=== PATIENT | female | born 1990 | race Caucasian/White ===

== ENCOUNTER 2023-10-10 20:42 | Inpatient (IN) ==
[2023-10-10] MEDS ORDERED: LIDOCAINE 1% LOCAL 20 ML VIAL INFIL PRN (21:20)
[2023-10-10] MEDS: LACTATED RINGER'S 1,000 ML IV PRN (21:46)
--- NOTE | 2023-10-10 21:48 | History & Physical Report ---
Date of Service October 10, 2023 Assessment & Plan (1) Active labor at term: Plan: 33-year-old G1, P0 at 40 weeks and 4 days of gestation presenting today with regular contractions and cervical change, in active labor, Vital signs stable afebrile, heart rate reassuring, GBS positive, Plan to admit, monitor, labs, IV penicillin for GBS, Patient desires unmedicated labor, declines epidural and AROM. We discussed pain management during labor and the benefits of AROM and active labor. All questions were answered. (2) Post-term , 40-42 weeks of gestation: (3) GBS (group B Streptococcus carrier), +RV culture, currently : Admission and Anticipated Discharge Date Admission Date: October 10, 2023 History of Present Illness Primary Care Provider: NO PCP Patient is a 33-year-old G1, P0 at 40 weeks and 4 days of gestation who has been feeling contractions since 11 PM last night. They were irregular every 8 to 10 minutes and they became more regular after 6 PM, every 4 to 6 minutes. She denies leakage of fluid or vaginal bleeding. She reports good movements. She was in the office this morning and her cervix was 2 cm dilated she was sent from. Her has been uncomplicated except GBS positive. Allergies Allergy/AdvReac Type Severity Reaction Status Date / Time No Known Allergies Allergy Unknown Unverified 08/12/13 02:44 Home Medications Medication Instructions Recorded Confirmed Type None (Patient States No Home Meds) ##0 08/12/13 History vits,calcium 91-iron 28 pkg PO 10/10/23 History mg-folic 975 mcg-dha 200 mg oral pack ( + DHA) Patient History Surgical History S/P appendectomy Family History Father Diabetes Mother Glaucoma Mother Glaucoma Grandfather (Maternal) Hypertension Stroke Social History Smoking Status: Former smoker Hx Alcohol Use: No Hx Substance Use: No Preferred Language: Spanish Communication Ability: Effective Livestock Breeder Required: No Beliefs That Will Affect Care: None marital status: marital status details: Prashant Robb) Current Living Situation: Spouse Current Living Situation Comment: lives with , David current occupational status: employed current occupation: [employer] Other Information That Helps Us Care for You: No Feels Safe at Home: Yes Safety Concerns: Feels Safe At This Time Diet: regular Assistive Devices: Contacts and Glasses ADMINISTRATIVE ASSISTANT FRONT DESK History No history of STDs, no history of chlamydia, gonorrhea, herpes Review of Systems as per Subjective / HPI Physical Exam Constitutional: WD/WN, vitals as above well developed, well nourished and + acute distress (She seems painful with contractions) Gastrointestinal (Abdomen): normal bowel sounds, soft, nontender, no hepatosp lenomegaly (Gravid) Genitourinary: normal external appearance OB Exam Abdomen: + vertex Manual OB Exam: + cervical dilation 5 cm (5 to 6 cm), + cervical effacement 70% and + station -2 (Bulging bag) OB Exam Monitor Tracing: + external uterine monitor used and + category I Results & Data Vital Signs (Past 12 Hours) Vital Signs Temp Pulse Resp BP 10/10/23 21:26 62 125/75 10/10/23 21:10 20 10/10/23 21:10 36.4 C L 20 10/10/23 21:06 36.4 C L 20
[2023-10-10 21:58] LABS: Hematocrit (blood only) 38.6 % (37.0-47.0); Hemoglobin 13.5 g/dl (12.0-16.0); Mean Corpuscular Hemoglobin 31.5 pg (25.0-34.0); Platelet Count 231 K/uL (130-400); RDW Coefficient of Variation 13.2 % (11.5-14.5); RDW Standard Deviation 43.6 fL (36.4-46.3); Red Blood Count 4.29 M/uL (4.20-5.40); White Blood Count 12.95 K/ul (4.8-10.8)
[2023-10-10] MEDS: PENICILLIN GK 6 MU in DEXTROSE 5% 250 ML IV STA (22:19)
[2023-10-10] MEDS: ONDANSETRON INJ 2 MG/ML 2 ML VIAL IV PRN (23:10)
[2023-10-11] MEDS ORDERED: CALCIUM CARBONATE 500 MG CHEWABLE TAB PO PRN (00:12)
[2023-10-11] MEDS ORDERED: NALBUPHINE HCL 5 MG in SYRINGE 0 ML IV PRN (00:32)
[2023-10-11] MEDS ORDERED: LIDOCAINE 2% MPF LOCAL 5 ML VIAL EPI PRN (00:32)
[2023-10-11] MEDS ORDERED: diphenhydrAMINE 50 MG/ML VIAL IV PRN (00:32)
[2023-10-11] MEDS ORDERED: fentANYL 2 MCG/ML BUPIVacaine 0.125%-NSS 100ML BAG EPI PRN (00:32)
[2023-10-11] MEDS ORDERED: SODIUM CHLORIDE 0.9% PF INJ 10 ML VIAL EPI PRN (00:32)
[2023-10-11] MEDS ORDERED: BUPIVACAINE 0.25% PF 30 ML VIAL EPI PRN (00:32)
[2023-10-11] MEDS ORDERED: ePHEDrine sulfate 50 MG/ML AMP IV PRN (00:32)
[2023-10-11] MEDS ORDERED: ROPIVACAINE 0.5% PF 5 MG/ML 20 ML VIAL EPI PRN (00:32)
[2023-10-11] MEDS ORDERED: fentaNYL citrate PF 100 MCG/2 ML VIAL EPI PRN (00:32)
[2023-10-11] MEDS ORDERED: NALOXONE HCL 1 MG in SODIUM CHLORIDE 0.9% 1,000 ML IV PRN (00:32)
[2023-10-11] MEDS ORDERED: NALOXONE HCL 0.4 MG/1 ML VIAL/CARP IV PRN (00:32)
--- NOTE | 2023-10-11 00:32 | Anesthesiology Consultation ---
Date of Service October 11, 2023 Assessment & Plan Chart Review Chart Review: Patient NOT seen in Pre Admission Testing and Acceptable Risk for Labor Epidural Consults Requested none ASA ASA2 Proposed Anesthesia Anesthesia Type: Labor Epidural Risk / Benefits Reviewed With: PT / POA / Parent / Guardian, Accepts Plan and Informed Consent Obtained History Height/Weight Height: 5 ft 6 in Weight: 76.657 kg Allergies Allergy/AdvReac Type Severity Reaction Status Date / Time No Known Allergies Allergy Unknown Unverified 08/12/13 02:44 Medications Home Medications Medication Instructions Recorded Confirmed Last Taken None (Patient States No Home Meds) ##0 08/12/13 Unknown vits,calcium 91-iron 28 pkg PO 10/10/23 10/10/23 mg-folic 975 mcg-dha 200 mg oral pack ( + DHA) Active Medications Generic Name Dose Route Start Last Admin Trade Name Freq PRN Reason Stop Dose Admin Lactated Ringer's 1,000 mls @ 150 mls/hr 10/10/23 21:20 10/10/23 21:46 Lr IV 10/12/23 21:19 150 mls/hr .[id number] PRN Administration L&D Protocol Protocol Ondansetron HCl 4 mg 10/10/23 22:45 10/11/23 00:56 Ondansetron Inj 2 Mg/Ml 2 Ml Vial IV 11/09/23 22:44 4 mg Q4H PRN Administration Nausea NPO Date Last Intake of Fluids: 10/11/23 Time Last Intake of Fluids: 00:00 Date Last Intake of Solids: 10/10/23 Time Last Intake of Solids: 19:00 Exercise / Class Metabolic Activity II 4-5 Yardwork/Stairs/Walk up hill Past Family History Family History Father Diabetes Mother Glaucoma Mother Glaucoma Grandfather (Maternal) Hypertension Stroke Past Surgical History Surgical History S/P appendectomy Past Anesthesia History No Hx of Anesthesia Complications and No Family Hx of Anesthesia Complications History of PONV No Hx of Motion Sickness and History of PONV Social History Smoking Status: Former smoker Hx Alcohol Use: No Hx Substance Use: No substance use type: does not use Review of Systems ROS Unobtainable: All systems reviewed & are unremarkable except as noted in HPI & below Physical Exam Vital Signs Last Vital Signs Temp 36.4 C L 10/10/23 21:10 Pulse 61 10/10/23 23:36 Resp 18 10/10/23 23:30 BP 130/79 10/10/23 23:36 ENMT Mouth: no TMJ abnormality Thyromental Distance: > or= 3.5 Finger Breadths Mallampati Class: II Neck normal visual inspection and trachea midline; neck extension not limited Respiratory normal respiratory effort Auscultation: lungs clear to auscultation bilaterally Cardiovascular Rate/Rhythm: regular rate and regular rhythm Heart Sounds: no murmur Musculoskeletal Spine: normal cervical ROM Extremities: full ROM of extremities Neurologic moves all extremities Psychiatric Orientation: alert and oriented x 3 Testing Laboratory Results 10/10/23 21:37
--- NOTE | 2023-10-11 00:36 | Obstetrical Progress Note ---
Date of Service October 11, 2023 Assessment & Plan Admission and Anticipated Discharge Date Admission Date: October 10, 2023 Subjective Patient is reevaluated. Contractions are getting more painful. She decided to get epidural. Declined VE FHR categ I, mild early decels with some of the contractions. Continue to monitor closely. Results & Data Vital Signs (Past 12 Hours) Vital Signs Temp Pulse Resp BP Pulse Ox 10/11/23 00:32 64 130/82 92 10/11/23 00:31 57 L 96 10/10/23 23:36 61 130/79 10/10/23 23:30 18 10/10/23 23:30 18 10/10/23 23:00 20 10/10/23 23:00 20 10/10/23 22:30 20 10/10/23 22:30 20 10/10/23 22:00 18 10/10/23 22:00 18 10/10/23 21:30 18 10/10/23 21:30 18 10/10/23 21:26 62 125/75 10/10/23 21:10 20 10/10/23 21:10 36.4 C L 20 10/10/23 21:06 36.4 C L 20
[2023-10-11] MEDS: BUPIVACAINE 0.25% PF 30 ML VIAL ONE (00:52)
[2023-10-11] MEDS: LIDOCAINE 2%/EPINEPHRINE 1:200,000 20 ML PF ONE (00:52)
[2023-10-11] MEDS: fentANYL 2 MCG/ML BUPIVacaine 0.125%-NSS 100ML BAG ONE (00:53)
[2023-10-11] MEDS: fentaNYL citrate PF 100 MCG/2 ML VIAL ONE (00:53)
--- NOTE | 2023-10-11 01:43 | Obstetrical Progress Note ---
Date of Service October 11, 2023 Assessment & Plan Admission and Anticipated Discharge Date Admission Date: October 10, 2023 Subjective Patient is comfortable now Received epidural for pain FHR had decels, some early with ctxs some variable with quick spontaneous recovery VE; 9/ 90%/ -, Large bulging bag, she agreed with AROM, clear fluid obtained FHR had accel and increased variability after VE Continue to monitor closely. Results & Data Vital Signs (Past 12 Hours) Vital Signs Temp Pulse Resp BP Pulse Ox 10/11/23 01:36 77 94 10/11/23 01:31 68 122/66 94 10/11/23 01:26 72 104/51 L 92 10/11/23 01:21 70 94 10/11/23 01:20 78 98/53 L 10/11/23 01:16 73 92 10/11/23 01:14 68 100/54 L 10/11/23 01:12 68 99/52 L 10/11/23 01:11 93 10/11/23 01:11 69 10/11/23 01:11 72 102/57 L 10/11/23 01:10 65 99/54 L 10/11/23 01:08 66 90/53 L 10/11/23 01:06 62 96/54 L 92 10/11/23 01:04 65 96/55 L 10/11/23 01:02 65 98/55 L 10/11/23 01:01 93 10/11/23 01:01 66 10/11/23 01:01 69 110/57 L 10/11/23 00:58 66 122/74 10/11/23 00:57 73 120/70 10/11/23 00:56 71 92 10/11/23 00:55 64 120/84 10/11/23 00:53 62 115/87 10/11/23 00:51 68 133/93 95 10/11/23 00:46 85 91 10/11/23 00:41 78 94 10/11/23 00:36 62 93 10/11/23 00:32 64 130/82 92 10/11/23 00:31 57 L 96 10/10/23 23:36 61 130/79 10/10/23 23:30 18 10/10/23 23:30 18 10/10/23 23:00 20 10/10/23 23:00 20 10/10/23 22:30 20 10/10/23 22:30 20 10/10/23 22:00 18 10/10/23 22:00 18 10/10/23 21:30 18 10/10/23 21:30 18 10/10/23 21:26 62 125/75 10/10/23 21:10 20 10/10/23 21:10 36.4 C L 20 10/10/23 21:06 36.4 C L 20
[2023-10-11] MEDS: PENICILLIN GK 3 MU in DEXTROSE 5% 100 ML IV PRN (02:15)
[2023-10-11] MEDS: SODIUM CHLORIDE 0.9% PF INJ 10 ML VIAL ONE (02:32)
[2023-10-11] MEDS: ePHEDrine sulfate 50 MG/ML AMP ONE (02:32)
[2023-10-11] MEDS: BUPIVACAINE 0.25% PF 30 ML VIAL EPI STA (02:32)
[2023-10-11] MEDS: LIDOCAINE 2%/EPINEPHRINE 1:200,000 20 ML PF EPI STA (02:33)
[2023-10-11] MEDS: ONDANSETRON INJ 2 MG/ML 2 ML VIAL IV STA (02:33)
[2023-10-11] MEDS: SODIUM CHLORIDE 0.9% PF INJ 10 ML VIAL EPI STA (02:33)
[2023-10-11] MEDS: fentaNYL citrate PF 100 MCG/2 ML VIAL EPI STA (02:33)
[2023-10-11] MEDS: OXYTOCIN 30 UNITS/NSS 30 UNITS/500 ML BAG IV PRN (06:37)
[2023-10-11] MEDS ORDERED: ACETAMINOPHEN 325 MG TAB PO PRN (07:04)
[2023-10-11] MEDS ORDERED: HYDROCORTISONE ACETATE 25 MG SUPP PR PRN (07:04)
[2023-10-11] MEDS ORDERED: BENZOCAINE 20% SPRY 85 APPLN/85 GM CAN EXT PRN (07:04)
[2023-10-11] MEDS ORDERED: bisacodyL 10 MG SUPP PR PRN (07:04)
[2023-10-11] MEDS ORDERED: OXYTOCIN 30 UNITS/NSS 30 UNITS/500 ML BAG IV PRN (07:04)
--- NOTE | 2023-10-11 07:11 | Delivery Summary ---
Vaginal Delivery Summary Date of Service October 11, 2023 Vaginal Delivery Summary Patient was found to be fully dilated and desired to push. She pushed for about 2 hours and the head was over a tight perineum, offered her small episiotomy but declined. She then push with contractions and delivered the head and then shoulders spontaneously without traction at 06:23 am. The baby was handed off to the mother. The couple requested delayed cord clamping earlier but unable to due to spontaneous cry. The cord was clampedx2 and cut. The was taken by nursery team. The vagina and perineum were checked and found to have 2nd degree perineal laceration with extension to right lower vagina. Rectal exam was done and noted good sphincter tone. The gloves were changes. The vaginal mucosa was repaired with 2/0 vicryl and skin on subcuticular fashion. The placenta was delivered spontaneously as intact and complete. The uterus was explored and found to be empty. EBL was 200 ml. The fundus was firm The baby was a viable male , see nursery records. The mother and the baby tolerated the procedure well. No complications happened and I was present during whole procedure.
[2023-10-11] MEDS: MEASLES, MUMPS & RUBELLA VIRUS VACCINE (MMR) VIAL SQ ONE (07:14)
--- NOTE | 2023-10-11 07:51 | Anesthesia Procedure Note ---
Date of Service October 11, 2023 Anesthesia Post Epidural Note Vital Signs Vital Signs: Temp Pulse Resp BP Pulse Ox 98.1 F 92 H 16 119/67 92 10/11/23 05:36 10/11/23 07:49 10/11/23 07:35 10/11/23 07:49 10/11/23 06:56 Pain Intensity Abdomen: Pain Intensity: 7 Notes Mental Status: alert / awake / arousable and participated in evaluation Nausea / Vomiting: adequately controlled Pain: adequately controlled Airway Patency, RR, SpO2: stable & adequate BP & HR: stable & adequate Hydration State: stable & adequate Neuraxial Anesthesia: was administered and sensory block is resolving Anesthetic Complications: no major complications apparent and Pt Satisfied with anesthetic care Epidural: Removed without complications and With tip intact
[2023-10-11] MEDS: MINERAL OIL 30 ML UDC ONE (10:10)
[2023-10-11] MEDS: IBUPROFEN 600 MG TAB PO PRN (11:44)
[2023-10-11] MEDS: FERROUS SULFATE 325 MG TAB PO SCH (11:46)
[2023-10-11] MEDS: PRENATAL VITAMIN 1 TAB PO SCH (11:46)
[2023-10-11] MEDS: DOCUSATE SODIUM 100 MG CAP PO SCH (11:46)
[2023-10-11] MEDS: DIPHTHER/TETAN/PERTUS Vaccine (Tdap, Adol/Adult) 0.5mL IM ONE (11:47)
--- OUTSIDE RECORDS SUMMARY | 2023-10-11 11:51 | External Medical Summary | Summary of Care ---
Author Name Unknown Organization [facility] Address [address] [facility] [place] [address] Phone [phone] Care Team Providers Care Nephrology Social Worker Name Role Phone Dash Vanessa MD Primary Care Provider [phone] Reason for Visit * Reason Comments Return Visit Encounter Details Date Type Department Care Team (Late st Contact Info) Description 09/17/2023 8:30 AM EST Office Visit Gynecology/Obstetri [facility] [address] [place] [address] BackerBhumi CRNP [address] [place] [address] Supervision of normal first , antepartum*; Primigravida of advanced maternal age in third trimester; Carrier of group B Streptococcus Allergies No known active allergiesdocumented as of this encounter (statuses as of 09/17/2023) Medications Medication Sig Dispensed Refills Start Date End Date Status Pre-Rebecca Formula Oral Tablet Take 1 Tablet by mouth in the morning. 0 Active documented as of this encounter (statuses as of 09/17/2023) Active Problems Problem Noted Date Diagnosed Date Carrier of group B Streptococcus 09/10/2023 Uterine size date discrepancy 08/12/20 23 AMA (advanced maternal age) primigravida 35+ Supervision of normal first , antepartu m 03/24/2023 Tonsillitis 07/02/2022 Snoring 07/02/2022 Estimated Date of Delivery Comme nts Yes 10/03/2023 Based on last me nstrual period of 12/27/2022 (Exact Date) documented as of this encounter (statuses as of 09/17/2023) Immunizations Name Administration Dates Next Due DT - Diptheria/Tetanus (PEDS) 03/22/2003, 993 DTaP Dipth/Tet/Acell Pertussis (Infanrix), Peds 10/28/1989,07/01/1989,1988,08/01,1988 HIB PRP-OMP, 3 dose (Pedvax) 10/28/1989 Hepatitis B, 0-19 yrs 10/26/1999,05/23/1999,03/26 IPV - Polio Virus Vaccine (Inact) 1992,12/04/1992,1988,08/01,1988 MMR - Measles/Mumps/Rubella Vaccine 04/18/1999,1 1988 Meningococcal Conjugate Vacc ine (Menactra/Menveo) 03/16/2007,03/16/2007 PPD 05/04/2015,07/15/2011,01/18/2004 TDAP (age 11 and older)(Adacel) 07/15/2011 documented as of this encounter Social History Tobacco Use Types Packs/Day Years Used Date Smoking Tobacco: Never Smokeless Tobacco: Never Alcohol Use Standard Drinks/Week Comments No 0 (1 standard drink = 0.6 oz pur e alcohol) Hunger Vital Sign Answer Date Recorded Within the past 12 months, y ou worried that your food would run out before you got the money to buy more. Never true 02/18/20 23 Within the past 12 months, t he food you bought just didn't last and you didn't have money to get more. Never true 02/17/2023 Logan Depression Scale Answer Date Recorded Logan Depression Scale Total 8 07/14/2023 The thought of harming myself has occurred to me . Never 07/14/2023 Estimated Date of Delivery Comme nts Yes 10/03/2023 Based on last me nstrual period of 12/27/2022 (Exact Date) Sex and Gender Information Value Date Recorded Sex Assigned at Female 02/17/2023 9:23 AM EDT Gender Identity Female 02/17/2023 9:23 AM EDT Sexual Orientation Straight 02/17/2023 9: 23 AM EDT Job Start Date Occupation Industry Not on file Not on file Not on file documented as of this encounter Last Filed Vital Signs Vital Sign Reading Time Taken Comments Blood Pressure 104/66 09/17/2023 8:29 AM EST Pulse - - Temperature - - Respiratory Rate - - Oxygen Saturation - - Inhaled Oxygen Concentration - - Weight 76.6 kg (168 lb 12.8 oz) 09/17/2023 8:29 AM EST Height - - Body Mass Index 28.09 09/09/2023 9:04 AM EST documented in this encounter Progress Notes * Bhumi Rolon CRNP - 09/17/2023 8:35 AM EST 37w5d Baby is moving well. No ctx/bleeding or LOF. Discussed +GBS. Has completed childbirth classes and hospital tour. Reviewed labor signs and FKC. Normal growth scan 3 wks ago. Return in 1 week. FILEMON Zhang * Naima Chavira LPN - 09/17/2023 8:29 AM EST 37w5d Denies vaginal bleeding/rom + movement No new concerns documented in this encounter Plan of Treatment Upcoming Encounters Date Type Department Care Team (Late st Contact Info) Description 09/23/2023 8:45 AM EST Office Visit Gynecology/Obstetrics [facility] [address] [place] [phone] Bhumi Rolon CRNP [address] [place] [phone] 10/02/2023 9:15 AM EST Office Visit Gynecology/Obstetrics [facility] [address] [place] [phone] Backer, FILEMON Sage [address] [place] [address] Health Maintenance Due Date Last Done Comments COVID-19 Vaccine (#1) 1988 Depression Screening 05/04/2016 05/04/2015 DTaP,Tdap,and Td Vaccines (8 - Td or Tdap) 07/15/2021 07/15/2011, 03/22/2003, 12/04/1992, Additional history exists Influenza Vaccine (FLU shot) (#1) 2023 Pap Smear 09/16/2025 09/16/2022 Diabetes Screening 09/27/2025 09/27/2022 Cervical Cancer Screening 09/16/2027 HPV/Co-Test 09/16/2027 09/16/2022 Hepatitis B Completed 10/26/1999, 04/26, 04/18/1999 MENINGOCOCCAL (MENACTRA/MENVEO) Aged Out 03/16/2007, 03/16/2007 No longer eligibl e based on patient's age to complete this topic GARDASIL-HPV IMMUNIZATION SERIES Aged Out No longer eligible based on patient's age to complete this topic Pneumococcal Vaccine: Pediatrics (0 to 5 Years) and At-Risk Patients (6 to 64 Years) Aged Out No longer eligible based on patient's age to complete this topic documented as of this encounter Medical Devices Not on filedocumented as of this encounter Visit Diagnoses Diagnosis Supervision of normal first , antepartum- Primary Primigravida of advanced maternal age in third trimester Carrier of group B Streptococcus Carrier or suspected carrier of Group B streptococcus documented in this encounter Care Teams Nephrology Social Worker Relationship Specialty Start Date End Date Dash Vanessa MD [address] [place] [address] PCP - General Internal Medicine 07/23/22 documented as of this encounter
--- OUTSIDE RECORDS SUMMARY | 2023-10-11 11:51 | External Medical Summary | Summary of Care ---
Author Name Unknown Organization [facility] Address [address] [facility] [place] [address] Phone [phone] Care Team Providers Care Nurse Unit Manager Name Role Phone Dash Vanessa MD Primary Care Provider [phone] Reason for Visit * Reason Comments Return Visit Encounter Details Date Type Department Care Team (Late st Contact Info) Description 09/23/2023 8:45 AM EST Office Visit Gynecology/Obstetri [facility] [address] [place] [address] BackBhumi blanchard CRNP [address] [place] [address] Supervision of normal first , antepartum*; Primigravida of advanced maternal age in third trimester; Carrier of group B Streptococcus Allergies No known active allergiesdocumented as of this encounter (statuses as of 09/23/2023) Medications Medication Sig Dispensed Refills Start Date End Date Status Pre-Rebecca Formula Oral Tablet Take 1 Tablet by mouth in the morning. 0 Active documented as of this encounter (statuses as of 09/23/2023) Active Problems Problem Noted Date Diagnosed Date Carrier of group B Streptococcus 09/10/2023 AMA (advanced maternal age) primigravida 35+ Supervision of normal first , antepartu m 03/24/2023 Tonsillitis 07/02/2022 Snoring 07/02/2022 Estimated Date of Delivery Comme nts Yes 10/03/2023 Based on last me nstrual period of 12/27/2022 (Exact Date) documented as of this encounter (statuses as of 09/23/2023) Resolved Problems Problem Noted Date Diagnosed Date Resolved Date Uterine size date discrepancy 08/12/2023 09/23/2023 documented as of this encounter (statuses as of 09/23/2023) Immunizations Name Administration Dates Next Due DT [...] money to get more. Never true 02/17/2023 Hillman Depression Scale Answer Date Recorded Hillman Depression Scale Total 8 07/14/2023 The thought [...] Sign Reading Time Taken Comments Blood Pressure 114/72 09/23/2023 8:44 AM EST Pulse - - Temperature - - Respiratory Rate - - Oxygen Saturation - - Inhaled Oxygen Concentration - - Weight 76.7 kg (169 lb) 09/23/2023 8:44 AM EST Height 165.1 cm (5' 5") 09/23/2023 8:44 AM EST Body Mass Index 28.12 09/23/2023 8:44 AM EST documented in this encounter Progress Notes * Bhumi Rolon CRNP - 09/23/2023 8:46 AM EST 38w4d Baby moving well, no ctx/leaking/bleeding. Not planning on using contraception PP. 1 week return FILEMON Zhang documented in this encounter Nursing Notes * Emerald Kerns LPN - 09/23/2023 8:47 AM EST 38w4d Denies concerns. documented in this encounter Plan of Treatment Upcoming Encounters Date Type Department Care Team (Late st Contact Info) Description 10/02/2023 9:15 AM EST [facility] [address] [place] [address] Bhumi Rolon CRNP [address] [place] [address] Health Maintenance Due Date Last Done Comments [...] streptococcus documented in this encounter Care Teams Nurse Unit Manager Relationship Specialty Start Date End Date Dash Vanessa MD [address] [place] [address] PCP - General Internal Medicine 07/23/22 documented as of this encounter
--- OUTSIDE RECORDS SUMMARY | 2023-10-11 11:51 | External Medical Summary | Summary of Care ---
Author Name Unknown Organization [facility] Address [address] [facility] [place] [address] Phone [phone] Care Team Providers Care Professor Of Radiology Name Role Phone Dash Vanessa MD Primary Care Provider Reason for Visit * Reason Comments Return Visit Encounter Details Date Type Department Care Team (Late st Contact Info) Description 09/09/2023 9:00 AM EST Office Visit Gynecology/Obstetric s [facility] [address] [place] [address] Karolina Judd CRNP [address] [place] [address] Supervision of normal first , antepartum*; Primigravida of advanced maternal age in third trimester Allergies No known active allergiesdocumented as of this encounter (statuses as of 09/09/2023) Medications Medication Sig Dispensed Refills Start Date End Date Status Pre-Rebecca Formula Oral Tablet Take 1 Tablet by mouth in the morning. 0 Active documented as of this encounter (statuses as of 09/09/2023) Active Problems Problem Noted Date Diagnosed Date Uterine size date discrepancy 08/12/20 23 AMA (advanced maternal age) primigravida 35+ Supervision of normal first , antepartu m 03/24/2023 Tonsillitis 07/02/2022 Snoring 07/02/2022 Estimated Date of Delivery Comme nts Yes 10/03/2023 Based on last me nstrual period of 12/27/2022 (Exact Date) documented as of this encounter (statuses as of 09/09/2023) Immunizations Name Administration Dates Next Due DT [...] money to get more. Never true 02/17/2023 Lisbon Depression Scale Answer Date Recorded Lisbon Depression Scale Total 8 07/14/2023 The thought [...] Sign Reading Time Taken Comments Blood Pressure 118/68 09/09/2023 9:04 AM EST Pulse - - Temperature - - Respiratory Rate - - Oxygen Saturation - - Inhaled Oxygen Concentration - - Weight 76.7 kg (169 lb) 09/09/2023 9:04 AM EST Height 165.1 cm (5' 5") 09/09/2023 9:04 AM EST Body Mass Index 28.12 09/09/2023 9:04 AM EST documented in this encounter Progress Notes * Karolina Judd CRNP - 09/09/2023 9:20 AM EST 36w4d No concerns. Feeling well. Baby is moving well. Denies contractions,bleeding, or LOF. GBS today. Size<dates, but growth u/s 2 weeks ago showing appropriate growth. FILEMON [place] * Yulissa Matamoros LPN - 09/09/2023 9:04 AM EST 36w4d Needs gbs today documented in this encounter Plan of Treatment Upcoming Encounters Date Type Department Care Team (Late st Contact Info) Description 09/17/2023 8:30 AM EST Office Visit Gynecology/Obstetrics [facility] [address] [place] [address] Bhumi Rolon CRNP [address] [place] [phone] 09/23/2023 8:45 AM EST Office Visit Gynecology/Obstetrics [facility] [address] [place] [address] Bhumi Rolon CRNP [address] [place] [address] 10/02/2023 9:15 AM EST Office Visit Gynecology/Obstetrics [facility] Bautista [address] [place] [address] Backer, FILEMON Sage [address] [place] [address] Pending Results Name Type Priority Associated Diagnoses Date /Time GROUP B STREP CULTURE/PCR Lab Routine Supervision of normal first , antepartum 09/09/2023 9:31 AM EST Scheduled Orders Name Type Priority Associated Diagnoses Orde r Schedule GROUP B STREP CULTURE/PCR Lab Routine Supervision of normal first , antepartum Expected: 09/09/2023, Expires: 09/09/2024 Health Maintenance Due Date Last Done Comments [...] of advanced maternal age in third trimester documented in this encounter Care Teams Professor Of Radiology Relationship Specialty Start Date End Date Dash Vanessa MD [address] [place] [address] PCP - General Internal Medicine 07/23/22 documented as of this encounter
--- OUTSIDE RECORDS SUMMARY | 2023-10-11 11:51 | External Medical Summary | Summary of Care ---
Author Name Unknown Organization [facility] Address [address] [facility] [place] [address] Phone [phone] Care Team Providers Care Buoy Tender Name Role Phone Dash Vanessa MD Primary Care Provider Reason for Visit * Reason Comments Return Visit Encounter Details Date Type Department Care Team (Late st Contact Info) Description 08/27/2023 8:45 AM EST Office Visit Gynecology/Obstetric s [facility] Bautista [address] [place] [address] BackerBhumi CRNP [address] [place] [address] Supervision of normal first , antepartum*; Primigravida of advanced maternal age in third trimester Allergies No known active allergiesdocumented as of this encounter (statuses as of 08/27/2023) Medications Medication Sig Dispensed Refills Start Date End Date Status Pre- Formula Oral Tablet Take 1 Tablet by mouth in the morning. 0 Active documented as of this encounter (statuses as of 08/27/2023) Active Problems Problem Noted Date Diagnosed Date Uterine size date discrepancy 08/12/20 23 AMA (advanced maternal age) primigravida 35+ Supervision of normal first , antepartu m 03/24/2023 Tonsillitis 07/02/2022 Snoring 07/02/2022 Estimated Date of Delivery Comme nts Yes 10/03/2023 Based on last me nstrual period of 12/27/2022 (Exact Date) documented as of this encounter (statuses as of 08/27/2023) Immunizations Name Administration Dates Next Due DT [...] money to get more. Never true 02/17/2023 [place] Depression Scale Answer Date Recorded [place] Depression Scale Total 8 07/14/2023 The thought [...] Sign Reading Time Taken Comments Blood Pressure 122/70 08/27/2023 8:48 AM EST Pulse - - Temperature - - Respiratory Rate - - Oxygen Saturation - - Inhaled Oxygen Concentration - - Weight 74.7 kg (164 lb 9.6 oz) 08/27/2023 8:48 A M EST Height - - Body Mass Index 27.39 08/12/2023 8:41 AM EST documented in this encounter Progress Notes * Naima Chavira LPN - 08/27/2023 8:48 AM EST 34w5d Denies vaginal bleeding/rom + movement US yesterday for growth Labor instructions given * Bhumi Rolon CRNP - 08/27/2023 8:46 AM EST 34w5d Baby is moving well. No regular ctx, leaking/bleeding. Growth u/s yesterday: EFW 41st %ile, normal SANDRA, vertex. Given labor instructions. Discussed OTC remedies for congestion. Return in 2 weeks. Discussed upcoming GBS testing. FILEMON Zhang documented in this encounter Plan of Treatment Upcoming Encounters Date Type Department Care Team (Late st Contact Info) Description 09/09/2023 9:00 AM EST Office Visit Gynecology/Obstetrics Dilcia Bautista [address] [place] [address] Karolina Judd CRNP [address] [place] [address] 09/17/2023 8:30 AM EST Office Visit Gynecology/Obstetrics Dilcia Bautista [address] [place] [address] BackBhumi blanchard CRNP [address] [place] [address] 09/23/2023 8:45 AM EST Office Visit Gynecology/Obstetrics [facility] [address] [place], [place] [address] BackerBhumi CRNP [address] [place] [address] 10/02/2023 9:15 AM EST Office Visit Gynecology/Obstetrics [facility] [address] [place] [address] BackerBhumi CRNP [address] [place] [address] Health Maintenance Due Date Last Done Comments [...] trimester documented in this encounter Care Teams Buoy Tender Relationship Specialty Start Date End Date Dash Vanessa MD [address] [place] [address] PCP - General Internal Medicine 07/23/22 documented as of this encounter
--- OUTSIDE RECORDS SUMMARY | 2023-10-11 11:51 | External Medical Summary | Summary of Care ---
Author Name Unknown Organization [facility] Address [address] [facility] [place] [address] Phone [phone] Care Team Providers Care Tar Roofer Name Role Phone Dash Vanessa MD Primary Care Provider [phone] Reason for Visit * Reason Comments Return Visit Encounter Details Date Type Department Care Team (Late st Contact Info) Description 09/09/2023 9:00 AM EST Office Visit Gynecology/Obstetric s [facility] Bautista [address] [place] [address] Karolina Judd CRNP [address] [place] [address] Supervision of normal first , antepartum*; Primigravida [...] money to get more. Never true 02/17/2023 [place] Depression Scale Answer Date Recorded [place] Depression Scale Total 8 07/14/2023 The thought [...] Gynecology/Obstetrics Dilcia Bautista [address] [place] [address] Bhumi Rolon CRNP [address] [place] [address] 09/23/2023 8:45 AM EST Office Visit Gynecology/Obstetrics Dilcia Bautista [address] [place] [address] Bhumi Rolon CRNP [address] [place] [address] 10/02/2023 9:15 AM EST Office Visit Gynecology/Obstetrics Dilcia Bautista [address] [place] [address] Backer, FILEMON Sage [address] [place] [address] Pending Results Name Type Priority Associated Diagnoses [...] trimester documented in this encounter Care Teams Tar Roofer Relationship Specialty Start Date End Date Dash Vanessa MD [address] [place] [address] PCP - General Internal Medicine 07/23/22 documented as of this encounter
--- OUTSIDE RECORDS SUMMARY | 2023-10-11 11:51 | External Medical Summary | Summary of Care ---
Author Name Unknown Organization [facility] Address [address] [facility] [place] [address] Phone [phone] Care Team Providers Care News Editor Name Role Phone Dash Vanessa MD Primary Care Provider [phone] Reason for Visit * Reason Comments Return Visit Encounter Details Date Type Department Care Team (Late st Contact Info) Description 10/02/2023 9:15 AM EST Office Visit Gynecology/Obstetric s [facility] [address] [place] [address] BackerBhumi CRNP [address] [place] [address] Supervision of normal first , antepartum*; Primigravida of advanced maternal age in third trimester; Carrier of group B Streptococcus; Uterine size date discrepancy Allergies No known active allergiesdocumented as of this encounter (statuses as of 10/02/2023) Medications Medication Sig Dispensed Refills Start Date End Date Status Pre- Formula Oral Tablet Take 1 Tablet by mouth in the morning. 0 Active documented as of this encounter (statuses as of 10/02/2023) Active Problems Problem Noted Date Diagnosed Date Carrier of group B Streptococcus 09/10/2023 AMA (advanced maternal age) primigravida 35+ Supervision of normal first , antepartu m 03/24/2023 Tonsillitis 07/02/2022 Snoring 07/02/2022 Estimated Date of Delivery Comme nts Yes 10/03/2023 Based on last me nstrual period of 12/27/2022 (Exact Date) documented as of this encounter (statuses as of 10/02/2023) Resolved Problems Problem Noted Date Diagnosed Date Resolved Date Uterine size date discrepancy 08/12/2023 09/23/2023 documented as of this encounter (statuses as of 10/02/2023) Immunizations Name Administration Dates Next Due DT [...] money to buy more. Never true 02/18/20 Within the past 12 months, t he food you bought just didn't last and you didn't have money to get more. Never true 02/17/2023 [place] Depression Scale Answer Date Recorded [place] Depression Scale Total 8 07/14/2023 The thought [...] Sign Reading Time Taken Comments Blood Pressure 118/70 10/02/2023 9:14 AM EST Pulse - - Temperature - - Respiratory Rate - - Oxygen Saturation - - Inhaled Oxygen Concentration - - Weight 77.1 kg (170 lb) 10/02/2023 9:14 AM EST Height - - Body Mass Index 28.29 09/23/2023 8:44 AM EST documented in this encounter Progress Notes * Bhumi Rolon CRNP - 10/02/2023 9:25 AM EST 39w6d Doing well; baby is active. No regular ctx, bleeding/leaking. Discussed post-dates surveillance at 41 weeks. She is agreeable to scheduling an induction, prefers as close to 42 weeks as possible. S<D; last growth scan was early August, so will repeat. FILEMON Zhang * Naima Chavira LPN - 10/02/2023 9:15 AM EST 39w6d Denies vaginal bleeding/rom + movement [place] archibald documented in this encounter Plan of Treatment Upcoming Encounters Date Type Department Care Team (Late st Contact Info) Description 10/02/2023 3:00 PM EST Imaging Radiology [facility], [address] [place] [address] Supervision of normal first , antepartum; Uterine size date discrepancy 10/10/2023 11:30 AM EST Office Visit Gynecology/Obstetric s [facility] [address] [place] [address] Jonny Jacob MD [address] [place] [address] 10/14/2023 10:00 AM EST Imaging Radiology [facility] 2nd Floor, [place] [address] [place] [address] Scheduled Orders Name Type Priority Associated Diagnoses Orde r Schedule US PREG LIMITED 1 OR MORE FETUSES Medical Imaging Routine Supervision of normal first , antepartum Expected: 10/13/2023 (Approximate), Expires: 10/30/2024 US PREG FOLLOW-UP EACH FETUS Medical Imaging Routine Supervision of normal first , antepartum Uterine size date discrepancy Expected: 10/02/2023 (Approximate), Expires: 10/30/2024 Health Maintenance Due Date Last Done Comments [...] or suspected carrier of Group B streptococcus Uterine size date discrepancy Uterine size date discrepancy, antepartum condition or complication Supervision of normal first , antepartum Uterine size date discrepancy Uterine size date discrepancy, antepartum condition or complication documented in this encounter Care Teams News Editor Relationship Specialty Start Date End Date Dash Vanessa MD [address] [place] [address] PCP - General Internal Medicine 07/23/22 documented as of this encounter
--- OUTSIDE RECORDS SUMMARY | 2023-10-11 11:51 | External Medical Summary ---
Author Name Unknown Address Unknown Organization K01[facility] [place] [address] [facility] [address] [place] [address] Laboratory Report Ordering Provider Test Date Status ZEINAB MITTAL 09/09/2023 09:31:05 Final Observation Date Value Abnormality Reference (Units ) Status Streptococcus agalactiae DNA [Presence] in Specimen by MICHAEL with probe detection 09/09/2023 09:31:05 Positive Abnormal Negative Final Group B Streptococcus detect ed by culture-enhanced PCR (amplified probe).
The collection of vaginal/rectal swab specimen combinations (FDA approved specimen type) is optimal for the detection of Group B Streptococcus. Single source collection (vaginal only or rectal only) or alternate specimen sources may lead to false negative results. Performing Location [facility] [place] [address] [address]
--- OUTSIDE RECORDS SUMMARY | 2023-10-11 11:51 | External Medical Summary | Summary of Care ---
Author Name Unknown Organization [facility] Address [address] [facility] [place] [address] Phone [phone] Care Team Providers Care Medication Aide Name Role Phone Dash Vanessa MD Primary Care Provider [phone] Encounter Details Date Type Department Care Team (Late st Contact Info) Description 08/27/2023 Telephone Gynecology/Obstetrics [facility] [address] [facility] [place] [address] Ange Triplett MD [address] [facility] [place] [address] Allergies No known active allergiesdocumented as of [...] money to get more. Never true 02/17/2023 [place] Depression Scale Answer Date Recorded [place] Depression Scale Total 8 07/14/2023 The thought [...] on file documented as of this encounter Miscellaneous Notes * Telephone Encounter - Eliane Villalobos LPN - 08/27/2023 8:53 AM EST ----- Message from Ange Triplett MD sent at 08/26/2023 6:05 PM EST ----- Please kindly let the patient know I reviewed her growth ultrasound, growth is appropriate, normal amount of fluid and baby is head down Thank you ----- Message ----- From: Akin Escobedo In Sent: 08/26/2023 12:08 PM EST To: Ange Triplett MD documented in this encounter Plan of Treatment Upcoming Encounters Date Type Department Care Team (Late st Contact Info) Description 09/09/2023 9:00 AM EST Office Visit Gynecology/Obstetrics [facility] [address] [place] [address] Karolina Judd CRNP [address] [place] [address] 09/17/2023 8:30 AM EST Office Visit Gynecology/Obstetrics [facility] [address] [place] [address] Bhumi Rolon CRNP [address] [place] [address] 09/23/2023 8:45 AM EST Office Visit Gynecology/Obstetrics [facility] [address] [place] [address] Bhumi Rolon CRNP [address] [place] [address] 10/02/2023 9:15 AM EST Office Visit Gynecology/Obstetrics [facility] [address] [place] [address] Bhumi Rolon CRNP [address] [place] [address] Health Maintenance Due Date Last Done Comments [...] Not on filedocumented as of this encounter Care Teams Medication Aide Relationship Specialty Start Date End Date Dash Vanessa MD [address] [facility] [place] [address] PCP - General Internal Medicine 07/23/22 documented as of this encounter
--- OUTSIDE RECORDS SUMMARY | 2023-10-11 11:52 | External Medical Summary | Summary of Care ---
Author Name Unknown Organization [facility] Address [address] [facility] [place] [address] Phone [phone] Care Team Providers Care Product Marketing Consultant Name Role Phone Dash Vanessa MD Primary Care Provider [phone] Encounter Details Date Type Department Care Team (Late st Contact Info) Description 07/30/2023 Telephone Gynecology/Obstetrics [facility] [address] [place] [address] Karolina Judd CRNP [address] [place] [address] Allergies No known active allergiesdocumented as of this encounter (statuses as of 07/30/2023) Medications Medication Sig Dispensed Refills Start Date End Date Status Pre-Rebecca Formula Oral Tablet Take 1 Tablet by mouth in the morning. 0 Active documented as of this encounter (statuses as of 07/30/2023) Active Problems Problem Noted Date Diagnosed Date AMA (advanced maternal age) primigravida 35+ Supervision of normal first , antepartu m 03/24/2023 Tonsillitis 07/02/2022 Snoring 07/02/2022 Estimated Date of Delivery Comme nts Yes 10/03/2023 Based on last me nstrual period of 12/27/2022 (Exact Date) documented as of this encounter (statuses as of 07/30/2023) Immunizations Name Administration Dates Next Due DT [...] money to get more. Never true 02/17/2023 [place] Depression Scale Answer Date Recorded [place] Depression Scale Total 8 07/14/2023 The thought [...] encounter Miscellaneous Notes * Telephone Encounter - Pilar East LPN - 07/30/2023 4:55 PM EST FMLA forms signed by provider, placed on Regi's desk documented in this encounter Plan of Treatment Upcoming Encounters Date Type Department Care Team (Late st Contact Info) Description 08/12/2023 8:45 AM EST Office Visit Gynecology/Obstetrics [facility] [address] [facility] [place] [address] Ange Triplett MD [address] [place] [address] [place] [address] Health Maintenance Due Date Last Done Comments [...] filedocumented as of this encounter Care Teams Product Marketing Consultant Relationship Specialty Start Date End Date Dash Vanessa MD [address] [facility] [place] [address] PCP - General Internal Medicine 07/23/22 documented as of this encounter
--- OUTSIDE RECORDS SUMMARY | 2023-10-11 11:52 | External Medical Summary | Summary of Care ---
Author Name Unknown Organization [facility] Address [address] [facility] [place] [address] Phone [phone] Care Team Providers Care Ditch Cleaner Name Role Phone Dash Vanessa MD Primary Care Provider [phone] Reason for Visit * Reason Onset Date Comments Forms Request 07/29/2023 Encounter Details Date Type Department Care Team (Late st Contact Info) Description 07/29/2023 Telephone Gynecology/Obstetrics [facility] [address] [place] [address] Karolina Judd CRNP [address] [place] [address] Forms Request Allergies No known active allergiesdocumented as of this encounter (statuses as of 07/29/2023) Medications Medication Sig Dispensed Refills Start Date End Date Status Pre-Rebecca Formula Oral Tablet Take 1 Tablet by mouth in the morning. 0 Active documented as of this encounter (statuses as of 07/29/2023) Active Problems Problem Noted Date Diagnosed Date AMA (advanced maternal age) primigravida 35+ Supervision of normal first , antepartu m 03/24/2023 Tonsillitis 07/02/2022 Snoring 07/02/2022 Estimated Date of Delivery Comme nts Yes 10/03/2023 Based on last me nstrual period of 12/27/2022 (Exact Date) documented as of this encounter (statuses as of 07/29/2023) Immunizations Name Administration Dates Next Due DT [...] money to get more. Never true 02/17/2023 [place] Depression Scale Answer Date Recorded [place] Depression Scale Total 8 07/14/2023 The thought [...] encounter Miscellaneous Notes * Telephone Encounter - Emerald Kerns LPN - 07/29/2023 10:38 AM EST Forms on Karolina's desk for signature. * Telephone Encounter - Emerald Kerns LPN - 07/29/2023 9:32 AM EST FMLA forms received 07/29/2023 Would pt like forms faxed no. Prefers to parts picker at next office visit. Does pt need notified when done? no Patient Phone Numbers documented in this encounter Plan of Treatment Upcoming Encounters Date Type Department Care Team (Late st Contact Info) Description 08/12/2023 8:45 AM EST Office Visit Gynecology/Obstetrics [facility] [address] [facility] [place] [address] Ange Triplett MD [address] [place] [address] [place] [address] Health Maintenance Due Date Last Done Comments [...] filedocumented as of this encounter Care Teams Ditch Cleaner Relationship Specialty Start Date End Date Dash Vanessa MD [address] [place] [address] PCP - General Internal Medicine 07/23/22 documented as of this encounter
--- OUTSIDE RECORDS SUMMARY | 2023-10-11 11:52 | External Medical Summary | Summary of Care ---
Author Name Unknown Organization [facility] Address [address] [facility] [place] [address] Phone [phone] Care Team Providers Care Coal Hauler Name Role Phone Dash Vanessa MD Primary Care Provider [phone] Reason for Visit * Reason Comments Return Visit Encounter Details Date Type Department Care Team (Late st Contact Info) Description 06/16/2023 7:45 AM EDT Office Visit Gynecology/Obstetric s [facility] [address] [place] [address] Missy Mahan PA-C [address] [place] [address] Supervision of normal first , antepartum*; Primigravida of advanced maternal age in third trimester Allergies No known active allergiesdocumented as of this encounter (statuses as of 06/16/2023) Medications Medication Sig Dispensed Refills Start Date End Date Status Pre-Rebecca Formula Oral Tablet Take 1 Tablet by mouth in the morning. 0 Active documented as of this encounter (statuses as of 06/16/2023) Active Problems Problem Noted Date Diagnosed Date AMA (advanced maternal age) primigravida 35+ Supervision of normal first , antepartu m 03/24/2023 Tonsillitis 07/02/2022 Snoring 07/02/2022 Estimated Date of Delivery Comme nts Yes 10/03/2023 Based on last me nstrual period of 12/27/2022 (Exact Date) documented as of this encounter (statuses as of 06/16/2023) Immunizations Name Administration Dates Next Due DT [...] Date Smoking Tobacco: Never Smokeless Tobacco: Never Tobacco Cessation:Counseling Given: Not Answered Alcohol Use Standard Drinks/Week Comments No 0 [...] money to get more. Never true 02/17/2023 [place] Depression Scale Answer Date Recorded [place] Depression Scale Total 6 02/17/2023 The thought of harming myself has occurred to me . Never 02/17/2023 Estimated Date of Delivery Comme nts Yes [...] Sign Reading Time Taken Comments Blood Pressure 110/58 06/16/2023 7:41 AM EDT Pulse - - Temperature - - Respiratory Rate - - Oxygen Saturation - - Inhaled Oxygen Concentration - - Weight 70.9 kg (156 lb 3.2 oz) 06/16/2023 7:41 A M EDT Height 165.1 cm (5' 5") 06/16/2023 7:41 AM EDT Body Mass Index 25.99 06/16/2023 7:41 AM EDT documented in this encounter Progress Notes * Missy Mahan PA-C - 06/16/2023 7:58 AM EDT 24w3d First time seeing patient. Has been noticing intermittent tightening, ? BH contractions. Not painful. Continues to exercise, has noticed some lateral intermittent discomfort that resolves with rest. Denies bleeding, leaking. Baby is moving well. Reviewed third tri labs and Tdap with next visit. RTC in 4 weeks Missy Mahan PA-C documented in this encounter Nursing Notes * Anila Duffy RN - 06/16/2023 7:42 AM EDT Patient here for AMY 24w3d No concerns documented in this encounter Plan of Treatment Upcoming Encounters Date Type Department Care Team (Late st Contact Info) Description 07/14/2023 8:00 AM EST [facility] [address] [place] [phone] Jose Bautista [address] [place] [address] 07/14/2023 8:30 AM EST Office Visit Gynecology/Obstetrics [facility] [address] [place] [address] Cindy Gayle, [facility] [address] [place] [address] Scheduled Orders Name Type Priority Associated Diagnoses Orde r Schedule SYPHILIS ANTIBODY SCREEN WITH REFLEX TO RPR Lab Routine Supervision of normal first , antepartum Expected: 07/17/2023 (Approximate), Expires: 06/16/2024 CBC WITH WBC DIFFERENTIAL AND ANEMIA REFLEX WORKUP Lab Routine Supervision of normal first , antepartum Expected: 07/17/2023, Expires: 06/16/2024 50-G GESTATIONAL GLUCOSE, 1 HOUR Lab Routine Supervision of normal first , antepartum Expected: 07/17/2023, Expires: 06/16/2024 Health Maintenance Due Date Last Done Comments [...] trimester documented in this encounter Care Teams Coal Hauler Relationship Specialty Start Date End Date Dash Vanessa MD [address] [place] [address] PCP - General Internal Medicine 07/23/22 documented as of this encounter
--- OUTSIDE RECORDS SUMMARY | 2023-10-11 11:52 | External Medical Summary | Summary of Care ---
Author Name Unknown Organization [facility] Address [address] [facility] [place] [address] Phone [phone] Care Team Providers Care Director Of Entertainment Name Role Phone Dash Vanessa MD Primary Care Provider [phone] Reason for Visit * Reason Comments Outpatient Testing Encounter Details Date Type Department Care Team (Late st Contact Info) Description 07/14/2023 8:00 AM EST Laboratory Laboratory, [facility] [address] [facility] [place] [phone] [facility] [address] Supervision of normal first , antepartum Allergies No known active allergiesdocumented as of this encounter (statuses as of 07/14/2023) Medications Medication Sig Dispensed Refills Start Date End Date Status Pre- Formula Oral Tablet Take 1 Tablet by mouth in the morning. 0 Active documented as of this encounter (statuses as of 07/14/2023) Active Problems Problem Noted Date Diagnosed Date AMA (advanced maternal age) primigravida 35+ Supervision of normal first , antepartu m 03/24/2023 Tonsillitis 07/02/2022 Snoring 07/02/2022 Estimated Date of Delivery Comme nts Yes 10/03/2023 Based on last me nstrual period of 12/27/2022 (Exact Date) documented as of this encounter (statuses as of 07/14/2023) Immunizations Name Administration Dates Next Due DT [...] money to get more. Never true 02/17/2023 [place] Depression Scale Answer Date Recorded [place] Depression Scale Total 8 07/14/2023 The thought [...] on file documented as of this encounter Plan of Treatment Upcoming Encounters Date Type Department Care Team (Late st Contact Info) Description 07/29/2023 9:15 AM EST Office Visit Gynecology/Obstetrics Dilcia Bautista [address] [place] [address] Karolina Judd CRNP [address] [place] [address] Pending Results Name Type Priority Associated Diagnoses Date /Time SYPHILIS ANTIBODY SCREEN WITH REFLEX TO RPR Lab Routine Supervision of normal first , antepartum 07/14/2023 9:16 AM EST CBC WITH WBC DIFFERENTIAL AND ANEMIA REFLEX WORKUP Lab Routine Supervision of normal first , antepartum 07/14/2023 9:16 AM EST SYPHILIS ANTIBODY SCREEN Lab Routine Supervision of normal first , antepartum 07/14/2023 9:16 AM EST ANEMIA CBC Lab Routine Supervision of normal first , antepartum 07/14/2023 9:16 AM EST DIFFERENTIAL, AUTOMATED Lab Routine Supervision of normal first , antepartum 07/14/2023 9:16 AM EST ANEMIA REFLEX CHEMISTRY HOLD Lab Routine Supervision of normal first , antepartum 07/14/2023 9:16 AM EST Health Maintenance Due Date Last Done Comments [...] Not on filedocumented as of this encounter Procedures Procedure Name Priority Date/Time Associated Diagnosis Comments 50-G GESTATIONAL GLUCOSE, 1 HOUR Routine 07/14/2023 9:16 AM EST Supervision of normal first , antepartum documented in this encounter Results * 50-G GESTATIONAL GLUCOSE, 1 HOUR (07/14/2023 9:16 AM EST) 50-g Gestational Glucose, 1 Hour 109 70 - 129 mg/dL 07/14/2023 10:56 AM EST [facility] [place] [facility]10 Blood Venous blood specimen / Unknown Venipuncture / Unknown 07/14/2023 9:16 AM EST 07/14/2023 9:16 AM EST Missy Mahan PA-C LAB BLOOD ORDERABLES [facility] [place] [facility]10 [address] [facility] [place] [address] documented in this encounter Visit Diagnoses Diagnosis Supervision of normal first , antepartum documented in this encounter Care Teams Director Of Entertainment Relationship Specialty Start Date End Date Dash Vanessa [facility] [address] [facility] [address] PCP - General Internal Medicine 07/23/22 documented as of this encounter
--- OUTSIDE RECORDS SUMMARY | 2023-10-11 11:52 | External Medical Summary | Summary of Care ---
Author Name Unknown Organization [facility] Address [address] [facility] [place] [address] Phone [phone] Care Team Providers Care Store Planner Name Role Phone Dash Vanessa MD Primary Care Provider [phone] Reason for Visit * Reason Onset Date Comments Forms Request 07/31/2023 Encounter Details Date Type Department Care Team (Late st Contact Info) Description 07/31/2023 Telephone Gynecology/Obstetrics [facility] [address] [place] [address] Karolina Judd CRNP [address] [place] [address] Forms Request Allergies No known active allergiesdocumented as of this encounter (statuses as of 07/31/2023) Medications Medication Sig Dispensed Refills Start Date End Date Status Pre- Formula Oral Tablet Take 1 Tablet by mouth in the morning. 0 Active documented as of this encounter (statuses as of 07/31/2023) Active Problems Problem Noted Date Diagnosed Date AMA (advanced maternal age) primigravida 35+ Supervision of normal first , antepartu m 03/24/2023 Tonsillitis 07/02/2022 Snoring 07/02/2022 Estimated Date of Delivery Comme nts Yes 10/03/2023 Based on last me nstrual period of 12/27/2022 (Exact Date) documented as of this encounter (statuses as of 07/31/2023) Immunizations Name Administration Dates Next Due DT [...] money to get more. Never true 02/17/2023 [place] Depression Scale Answer Date Recorded [place] Depression Scale Total 8 07/14/2023 The thought [...] encounter Miscellaneous Notes * Telephone Encounter - Regi Avila OSA - 07/31/2023 8:34 AM EST Forms completed and scanned into pt's chart. Placed in triage for mushroom picker. documented in this encounter Plan of Treatment Upcoming Encounters Date Type Department Care Team (Late st Contact Info) Description 08/12/2023 8:45 AM EST Office Visit Gynecology/Obstetrics [facility] [address] [facility] [place] [address] Ange Triplett MD [address] [place] [address] [place] [address] Health Maintenance Due Date [...] filedocumented as of this encounter Care Teams Store Planner Relationship Specialty Start Date End Date Dash Vanessa MD [address] [facility] [place] [id number] PCP - General Internal Medicine 07/23/22 documented as of this encounter
--- OUTSIDE RECORDS SUMMARY | 2023-10-11 11:52 | External Medical Summary | Summary of Care ---
Author Name Unknown Organization [facility] Address [address] [facility] [place] [address] Phone [phone] Care Team Providers Care Gold Tooler Name Role Phone Dash Vanessa MD Primary Care Provider [phone] Reason for Visit * Reason Comments Return Visit Encounter Details Date Type Department Care Team Description 04/21/2023 Office Visit Gynecology/Obstetrics [facility] [address] [place] [address] Bhumi Rolon CRNP [address] [place] [address] Supervision of normal first , antepartum*; Primigravida of advanced maternal age in second trimester Allergies No known active allergiesdocumented as of this encounter (statuses as of 04/21/2023) Medications Medication Sig Dispensed Refills Start Date End Date Status Pre-Rebecca Formula Oral Tablet Take 1 Tablet by mouth in the morning. 0 Active Vitamin B-6 100 MG Oral Tablet (vitamin B-6) Take 1 Tablet by mouth in the morning. 0 04/21/2023 Discontinued( Medication List Clean Up) documented as of this encounter (statuses as of 04/21/2023) Active Problems Problem Noted Date AMA (advanced maternal age) primigravida 35+ 04/21/2023 Supervision of normal first , a ntepartum 03/24/2023 Tonsillitis 07/02/2022 Snoring 07/02/2022 Estimated Date of Delivery Comme nts Yes 10/03/2023 Based on last me nstrual period of 12/27/2022 (Exact Date) documented as of this encounter (statuses as of 04/21/2023) Immunizations Name Administration Dates Next Due DT - Diptheria/Tetanus (PEDS) 03/22/2003, 993 DTaP - Dipth/Tet/Acell Pertussis 990,07/01/1989,1988,08/01,1988 HIB 3 dose (Pedvax) 10/28/1989 Hepatitis B, 0-19 [...] drink = 0.6 oz pur e alcohol) Food Insecurity Answer Date Recorded Within the past 12 months, y ou worried that your food would run out before you got money to buy more. Never true 02/17/2023 Within the past 12 months, t he food you bought just didn't last and you didn't have money to get more. Never true 02/17/2023 Estimated Date of Delivery Comme nts Yes 10/03/2023 Based on last me nstrual period of 12/27/2022 (Exact Date) Sex Assigned at Date Recorded Female 02/17/2023 9:23 AM E DT Job Start Date Occupation Industry Not on file Not on file Not on file documented as of this encounter Last Filed Vital Signs Vital Sign Reading Time Taken Comments Blood Pressure 100/60 04/21/2023 8:42 AM EDT Pulse - - Temperature - - Respiratory Rate - - Oxygen Saturation - - Inhaled Oxygen Concentration - - Weight 65.5 kg (144 lb 6.4 oz) 04/21/2023 8:42 A M EDT Height - - Body Mass Index 24.03 03/24/2023 8:14 AM EDT documented in this encounter Progress Notes * FILEMON [place] - 04/21/2023 8:51 AM EDT No movement yet. Denies cramping/bleeding. Constipation, reviewed remedies. Flying next week for a conference - discussed VTE risk and recommend frequent stretching/walking breaks, push fluids. Declines genetic screening. Return in 4 weeks with anatomy scan. FILEMON Zhang * Naima Chavira LPN - 04/21/2023 8:43 AM EDT 16w3d Denies vaginal bleeding/rom Absent movement Having some constipation documented in this encounter Plan of Treatment Upcoming Encounters Date Type Specialty Care Team Description 05/19/2023 Imaging Radiology 05/19/2023 Office Visit Gynecology Obstetrics Jonny Jacob MD [address] [place] [address] Scheduled Orders Name Type Priority Associated Diagnoses Orde r Schedule US PREG SINGLE/1ST GEST, 14 WEEKS OR LATER Medical Imaging Routine Supervision of normal first , antepartum Expected: 05/22/2023 (Approximate), Expires: 05/22/2024 Health Maintenance Due Date Last Done Comments COVID-19 Vaccine (#1) 1988 Depression Screening, Annual for Pts 12 and Over 05/04/2016 05/04/2015 DTaP,Tdap,and Td Vaccines (8 - Td or Tdap) 07/15/2021 07/15/2011, 03/22/2003, 12/04/1992, Additional history exists Influenza Vaccine (FLU shot) (#1) 2023 Pap Smear 09/16/2025 09/16/2022 Cervical Cancer Screening 09/16/2027 HPV/Co-Test 09/16/2027 09/16/2022 Hepatitis B Completed 10/26/1999, 04/26, 04/18/1999 MENINGOCOCCAL (MENACTRA/MENVEO) Aged Out 03/16/2007, 03/16/2007 No longer eligibl e based on patient's age to complete this topic Hepatitis C Screening Completed 02/17/2023 , 02/17/2023, 02/17/2023 GARDASIL-HPV IMMUNIZATION SERIES Aged Out No longer [...] Primary Primigravida of advanced maternal age in second trimester documented in this encounter Care Teams Gold Tooler Relationship Specialty Start Date End Date Dash Vanessa MD [address] [place], [place] [phone] PCP - General Internal Medicine 07/23/22 documented as of this encounter
--- OUTSIDE RECORDS SUMMARY | 2023-10-11 11:52 | External Medical Summary | Summary of Care ---
Author Name Unknown Organization [facility] Address [address] [facility] [place] [address] Phone [phone] Care Team Providers Care Make Up Operator Helper Name Role Phone Dash Vanessa MD Primary Care Provider [phone] Reason for Visit * Reason Onset Date Comments Fax 05/28/2023 Encounter Details Date Type Department Care Team Description 05/28/2023 Telephone Gynecology/Obstetrics [facility] [address] [place] [address] Bhumi Rolon CRNP [address] [place] [address] Fax Allergies No known active allergiesdocumented as of this encounter (statuses as of 05/28/2023) Medications Medication Sig Dispensed Refills Start Date End Date Status Pre-Rebecca Formula Oral Tablet Take 1 Tablet by mouth in the morning. 0 Active documented as of this encounter (statuses as of 05/28/2023) Active Problems Problem Noted Date AMA (advanced maternal age) primigravida 35+ 04/21/2023 Supervision of normal first , a ntepartum 03/24/2023 Tonsillitis 07/02/2022 Snoring 07/02/2022 Estimated Date of Delivery Comme nts Yes 10/03/2023 Based on last me nstrual period of 12/27/2022 (Exact Date) documented as of this encounter (statuses as of 05/28/2023) Immunizations Name Administration Dates Next Due DT [...] Telephone Encounter - Pilar East LPN - 05/28/2023 3:58 PM EDT [employer] orders signed, faxed, placed in scan bin. documented in this encounter Plan of Treatment Upcoming Encounters Date Type Specialty Care Team Description 06/03/2023 Imaging Radiology 06/16/2023 Office Visit Gynecology Obstetrics Missy Mahan PA-C [address] [place] [address] 07/14/2023 Office Visit Gynecology Obstetrics Cindy Gayle, [facility] [address] [place] [address] Health Maintenance Due Date Last Done Comments [...] filedocumented as of this encounter Care Teams Make Up Operator Helper Relationship Specialty Start Date End Date Dash Vanessa [facility] [address] [facility] [address] PCP - General Internal Medicine 07/23/22 documented as of this encounter
--- OUTSIDE RECORDS SUMMARY | 2023-10-11 11:52 | External Medical Summary ---
Author Name Unknown Address Unknown Organization [id number]:[facility] [place] [address] [place] [address] Laboratory Report Ordering Provider Test Date Status SANTOS URBANO 07/14/2023 09:16:40 Final Observation Date Value Abnormality Reference (Units ) Status Treponema pallidum Ab [Presence] in Serum by Immunoassay 07/14/2023 09:16:40 Nonreactive Nonreactive Final No serologic evidence of syp hilis. No additional testing clinicially indicated at this time. Consider repeat testing in 2-4 weeks if acute or primary syphilis is suspected. Performing Location [facility] [place] [address] [place] [address]
--- OUTSIDE RECORDS SUMMARY | 2023-10-11 11:52 | External Medical Summary ---
Author Name Unknown Address Unknown Organization K0G:[facility] [place] [facility] - [address] [place] [address] Laboratory Report Ordering Provider Test Date Status SANTOS URBANO 07/14/2023 09:16:40 Final Observation Date Value Abnormality Reference (Units ) Status Glucose [Moles/volume] in Serum or Plasma --1 hour post 50 g glucose PO 07/14/2023 09:16:40 109 70-129 (mg/dL) Final Performing Location [facility] [place] 57-1 0 - [address] [place] [address]
--- OUTSIDE RECORDS SUMMARY | 2023-10-11 11:52 | External Medical Summary ---
Author Name Unknown Address Unknown Organization K01:[facility] [place] [address] [address] [place] [address] Laboratory Report Ordering Provider Test Date Status YOLIESANTOS Chatterjee 07/14/2023 09:16:40 Final Observation Date Value Abnormality Reference (Units ) Status SYNC LEUKOCYTES IN BLOOD BY AUTOMATED COUNT 07/14/2023 09:16:40 7.74 4.00-10.80 (K/uL) Final Segs 07/14/2023 09:16:40 71.6 40.0-75.0 (%) Final Lymphs % 07/14/2023 09:16:40 19.6 18.0-42.0 (%) Final Monos 07/14/2023 09:16:40 7.0 1.0-11.0 (%) Final Eosinophils 07/14/2023 09:16:40 0.6 0.0-6.0 (%) Final Basos 07/14/2023 09:16:40 0.6 0.0-2.0 (%) Final Immature Granulocyte, Percent 07/14/2023 09:16:40 0.6 0.0-2.0 (%) Final Absolute Segs 07/14/2023 09:16:40 5.53 1.80-7.70 (K/uL) Final Lymphs, absolute 07/14/2023 09:16:40 1.52 1.00-4.80 (K/ul) Final Monos, Abs 07/14/2023 09:16:40 0.54 0.00-1.10 (K/uL) Final Eos, Abs 07/14/2023 09:16:40 0.05 0.00-0.70 (K/uL) Final Basos, Abs 07/14/2023 09:16:40 0.05 0.00-0.20 (K/uL) Final Immature Granulocytes, Number 07/14/2023 09:16:40 0.05 0.00-0.20 (K/uL) Final Performing Location [facility] - [address] [facility] [address]
--- OUTSIDE RECORDS SUMMARY | 2023-10-11 11:52 | External Medical Summary | Summary of Care ---
Author Name Unknown Organization [facility] Address [address] [facility] [place] [address] Phone [phone] Care Team Providers Care Photogrammetric Stereo Compiler Name Role Phone Dash Vanessa MD Primary Care Provider [phone] Reason for Visit * Reason Comments Return Visit Encounter Details Date Type Department Care Team (Late st Contact Info) Description 07/29/2023 9:15 AM EST Office Visit Gynecology/Obstetric s Ashraffany Bautista [address] [place] [address] Karolina Judd CRNP [address] [place] [address] Primigravida of advanced maternal age in third trimester*; Supervision of normal first , antepartum Allergies [...] money to get more. Never true 02/17/2023 [place] Depression Scale Answer Date Recorded [place] Depression Scale Total 8 07/14/2023 The thought [...] Sign Reading Time Taken Comments Blood Pressure 100/58 07/29/2023 9:11 AM EST Pulse - - Temperature - - Respiratory Rate - - Oxygen Saturation - - Inhaled Oxygen Concentration - - Weight 73 kg (161 lb) 07/29/2023 9:11 AM EST Height 165.1 cm (5' 5") 07/29/2023 9:11 AM EST Body Mass Index 26.79 07/29/2023 9:11 AM EST documented in this encounter Progress Notes * Karolina Judd CRNP - 07/29/2023 9:31 AM EST 30w4d No concerns. Baby is active. No contractions, bleeding or LOF. Taking PNV as directed. FILEMON [place] documented in this encounter Nursing Notes * Emerald Kerns LPN - 07/29/2023 9:16 AM EST 30w4d Denies concerns. Dropping off fmla for spouse. documented in this encounter Plan of Treatment Upcoming Encounters Date Type Department Care Team (Late st Contact Info) Description 08/12/2023 8:45 AM EST Office Visit Gynecology/Obstetrics [facility] 132 [facility] [place] [phone] Ange Triplett MD [address] [place] [address] [place] [address] Health Maintenance Due Date [...] as of this encounter Visit Diagnoses Diagnosis Primigravida of advanced maternal age in third trimester- Primary Supervision of normal first , antepartum documented in this encounter Care Teams Photogrammetric Stereo Compiler Relationship Specialty Start Date End Date Dash Vanessa MD [address] [place] [address] PCP - General Internal Medicine 07/23/22 documented as of this encounter
--- OUTSIDE RECORDS SUMMARY | 2023-10-11 11:52 | External Medical Summary | Summary of Care ---
Author Name Unknown Organization [facility] Address [address] [facility] [place] [address] Phone [phone] Care Team Providers Care Chromosomal Disorders Counselor Name Role Phone Dash Vanessa MD Primary Care Provider [phone] Reason for Visit * Reason Comments Return Visit Encounter Details Date Type Department Care Team (Late st Contact Info) Description 07/29/2023 9:15 AM EST Office Visit Gynecology/Obstetric s Ashraffany Bautista [address] [place] [address] Karolina Judd CRNP [address] [place] [address] Primigravida of advanced maternal age in third [...] money to get more. Never true 02/17/2023 [place] Depression Scale Answer Date Recorded [place] Depression Scale Total 8 07/14/2023 The thought [...] 08/12/2023 8:45 AM EST Office Visit Gynecology/Obstetrics [facility] 132 [facility] [place] [phone] Ange Triplett MD [address] [place] [address] [place] [address] Health Maintenance Due Date [...] antepartum documented in this encounter Care Teams Chromosomal Disorders Counselor Relationship Specialty Start Date End Date Dash Vanessa MD [address] [place] [address] PCP - General Internal Medicine 07/23/22 documented as of this encounter
--- OUTSIDE RECORDS SUMMARY | 2023-10-11 11:52 | External Medical Summary ---
Author Name Unknown Address Unknown Organization K01:[facility] - [address] [place] [address] Laboratory Report Ordering Provider Test Date Status SANTOS URBANO 07/14/2023 09:16:40 Final Observation Date Value Abnormality Reference (Units ) Status WBC, Total 07/14/2023 09:16:40 7.74 4.00-10.8 0 (K/uL) Final RBC 07/14/2023 09:16:40 4.05 3.85-5.15 (M/uL) Final Hemoglobin 07/14/2023 09:16:40 13.0 12.0-15.3 (g/dL) Final Anemia reflex testing trigge rs on a HGB < 12.0 for Females and HGB < 13.0 for Males in accordance with the WHO Anemia Guidelines
Anemia reflex testing triggers on a HGB < 12.0 for Females and HGB < 13.0 for Males in accordance with the WHO Anemia Guidelines HCT 07/14/2023 09:16:40 39.5 36.0-45.2 (%) Final MCV 07/14/2023 09:16:40 97.5 81.5-97.5 (fL) Final MCH 07/14/2023 09:16:40 32.1 27.0-34.0 (pg) Final MCHC 07/14/2023 09:16:40 32.9 32.0-36.0 (g/dL) Final RDW 07/14/2023 09:16:40 13.2 11.5-15.5 (%) Final Platelets 07/14/2023 09:16:40 239 140-400 (K /uL) Final MPV 07/14/2023 09:16:40 9.9 6.6-11.1 ( fL) Final Nucleated erythrocytes/100 leukocytes [Ratio] in Blood by Automated count 07/14/2023 09:16:40 0 <=0 (/100 WBCs) Fi nal Performing Location [facility] - [address] [place] [address]
--- OUTSIDE RECORDS SUMMARY | 2023-10-11 11:52 | External Medical Summary | Summary of Care ---
Author Name Unknown Organization [facility] Address [address] [facility] [place] [address] Phone [phone] Care Team Providers Care Text Transcriber Name Role Phone Dash Vanessa MD Primary Care Provider [phone] Reason for Visit * Reason Comments Return Visit Encounter Details Date Type Department Care Team Description 05/19/2023 Office Visit Gynecology/Obstetrics [facility] [address] [place] [address] Jonny Jacob MD [address] [place] [address] Supervision of normal first , antepartum*; Primigravida of advanced maternal age in second trimester Allergies No known active allergiesdocumented as of this encounter (statuses as of 05/19/2023) Medications Medication Sig Dispensed Refills Start Date End Date Status Pre- Formula Oral Tablet Take 1 Tablet by mouth in the morning. 0 Active documented as of this encounter (statuses as of 05/19/2023) Active Problems Problem Noted Date AMA (advanced maternal age) primigravida 35+ 04/21/2023 Supervision of normal first , a ntepartum 03/24/2023 Tonsillitis 07/02/2022 Snoring 07/02/2022 Estimated Date of Delivery Comme nts Yes 10/03/2023 Based on last me nstrual period of 12/27/2022 (Exact Date) documented as of this encounter (statuses as of 05/19/2023) Immunizations Name Administration Dates Next Due DT [...] Sign Reading Time Taken Comments Blood Pressure 110/62 05/19/2023 2:48 PM EDT Pulse - - Temperature - - Respiratory Rate - - Oxygen Saturation - - Inhaled Oxygen Concentration - - Weight 68.9 kg (152 lb) 05/19/2023 2:48 PM EDT Height 165.1 cm (5' 5") 05/19/2023 2:48 PM EDT Body Mass Index 25.29 05/19/2023 2:48 PM EDT documented in this encounter Progress Notes * Jonny Jacob MD - 05/19/2023 3:26 PM EDT Pt doing well No complaints Anatomy scan done today * Yulissa Matamoros LPN - 05/19/2023 2:50 PM EDT 20w3d documented in this encounter Plan of Treatment Upcoming Encounters Date Type Specialty Care Team Description 06/03/2023 Imaging Radiology 06/16/2023 Office Visit Gynecology Obstetrics Missy Mahan PA-C [address] [facility] [place] [address] 07/14/2023 Office Visit Gynecology Obstetrics Cindy Gayle CN [address] [facility] [place] [address] Scheduled Orders Name Type Priority Associated Diagnoses Orde r Schedule US PREG LIMITED 1 OR MORE FETUSES Medical Imaging Routine Supervision of normal first , antepartum Primigravida of advanced maternal age in second trimester Expected: 06/02/2023 (Approximate), Expires: 06/18/2024 Health Maintenance Due Date Last Done Comments [...] trimester documented in this encounter Care Teams Text Transcriber Relationship Specialty Start Date End Date Dash Vanessa MD [address] [place] [address] PCP - General Internal Medicine 07/23/22 documented as of this encounter
--- OUTSIDE RECORDS SUMMARY | 2023-10-11 11:52 | External Medical Summary | Summary of Care ---
Author Name Unknown Organization [facility] Address [address] [facility] [place] [address] Phone [phone] Care Team Providers Care Upholste[employer] [place] Name Role Phone Dash Vanessa MD Primary Care Provider [phone] Reason for Visit * Reason Onset Date Comments Fax 05/28/2023 Encounter Details Date Type Department Care Team Description 05/28/2023 Telephone Gynecology/Obstetrics [facility] [address] [place] [address] Bhumi Rolon CRNP [address] [place] [address] Fax Allergies No known active allergiesdocumented as [...] Encounter - Pilar East LPN - 05/28/2023 3:57 PM EDT Aeroflow breast pump order signed, faxed, placed in scan bin. documented in this encounter Plan of Treatment Upcoming Encounters Date Type Specialty Care Team Description 06/03/2023 Imaging Radiology 06/16/2023 Office Visit Gynecology Obstetrics Missy Mahan PA-C [address] [place] [address] 07/14/2023 Office Visit Gynecology Obstetrics Cindy Gayle, [facility] [address] [place] [address] Health Maintenance Due Date Last Done Comments [...] filedocumented as of this encounter Care Teams U[employer]olsterer [employer] [place] Relationship Specialty Start Date End Date Dash Vanessa MD [address] [facility] [place] [address] PCP - General Internal Medicine 07/23/22 documented as of this encounter
--- OUTSIDE RECORDS SUMMARY | 2023-10-11 11:52 | External Medical Summary | Summary of Care ---
Author Name Unknown Organization [facility] Address [address] [address] Phone [phone] Care Team Providers Care Detasseler Name Role Phone Dash Vanessa MD Primary Care Provider [phone] Reason for Visit * Reason Comments Return Visit Encounter Details Date Type Department Care Team (Late st Contact Info) Description 08/12/2023 8:45 AM EST Office Visit Gynecology/Obstetric [facility] [address] [facility] [place] [address] Ange Triplett MD [address] [place] [address] 32 weeks gestation of *; Primigravida of advanced maternal age in third trimester; Supervision of normal first , antepartum; Uterine size date discrepancy Allergies No known active allergiesdocumented as of this encounter (statuses as of 08/12/2023) Medications Medication Sig Dispensed Refills Start Date End Date Status Pre- Formula Oral Tablet Take 1 Tablet by mouth in the morning. 0 Active documented as of this encounter (statuses as of 08/12/2023) Active Problems Problem Noted Date Diagnosed Date Uterine size date discrepancy 08/12/20 23 AMA (advanced maternal age) primigravida 35+ Supervision of normal first , antepartu m 03/24/2023 Tonsillitis 07/02/2022 Snoring 07/02/2022 Estimated Date of Delivery Comme nts Yes 10/03/2023 Based on last me nstrual period of 12/27/2022 (Exact Date) documented as of this encounter (statuses as of 08/12/2023) Immunizations Name Administration Dates Next Due DT [...] money to get more. Never true 02/17/2023 Freedom Depression Scale Answer Date Recorded Freedom Depression Scale Total 8 07/14/2023 The thought [...] Sign Reading Time Taken Comments Blood Pressure 108/66 08/12/2023 8:41 AM EST Pulse - - Temperature - - Respiratory Rate - - Oxygen Saturation - - Inhaled Oxygen Concentration - - Weight 76.2 kg (168 lb) 08/12/2023 8:41 AM EST Height 165.1 cm (5' 5") 08/12/2023 8:41 AM EST Body Mass Index 27.96 08/12/2023 8:41 AM EST documented in this encounter Progress Notes * Emerald Kerns LPN - 08/12/2023 8:47 AM EST 32w4d Denies concerns. Picking up FMLA. Declines flu, tdap. * Ange Triplett MD - 08/12/2023 8:45 AM EST Patient is 33 year old at 32 4/7 weeks who presents for AMY visit Denies contractions, leaking of fluid, or vaginal bleeding. Noted good movement Denies headache, blurry vision, RUQ or epigastric pain. Problem list reviewed BP 108/66 | Ht 1.651 m (5' 5") | Wt 76.2 kg (168 lb) | LMP 12/27/2022 (Exact Date) | BMI 27.96 kg/m | BSA 1.87 m FH: 28 FHT: 145 Plan: Labor and preeclampsia warnings reviewed Flu vaccine and Tdap declined by patient RSV vaccine (32-36 6/7) offered US for size<dates ordered RTC 2 weeks V Uziel SAVAGE PhD documented in this encounter Plan of Treatment Upcoming Encounters Date Type Department Care Team (Late st Contact Info) Description 08/26/2023 11:30 AM EST Imaging Radiology [facility] [address] [facility] [place] [address] [place] [address] 08/27/2023 8:45 AM EST Office Visit Gynecology/Obstetrics [facility] [address] [place] [address] [place], FILEMON Sage [address] [place] [address] Scheduled Orders Name Type Priority Associated Diagnoses Orde r Schedule US PREG FOLLOW-UP EACH FETUS Medical Imaging Routine Uterine size date discrepancy Expected: 08/12/2023, Expires: 09/12/2024 Health Maintenance Due Date Last Done Comments [...] as of this encounter Visit Diagnoses Diagnosis 32 weeks gestation of - Primary state, incidental Primigravida of advanced maternal age in third trimester Supervision of normal first , antepartum Uterine size date discrepancy Uterine size date discrepancy, antepartum condition or complication documented in this encounter Care Teams Detasseler Relationship Specialty Start Date End Date Dash Vanessa MD [address] [place] [address] PCP - General Internal Medicine 07/23/22 documented as of this encounter
[2023-10-12 07:30] LABS: Hematocrit (blood only) 34.4 % (37.0-47.0); Hemoglobin 11.3 g/dl (12.0-16.0); Mean Corpuscular Hemoglobin 30.6 pg (25.0-34.0); Mean Corpuscular Hgb Conc 32.8 g/dL (32.0-36.0); Mean Corpuscular Volume 93.2 fL (80.0-100.0); Mean Platelet Volume 10.1 fL (9.4-12.4); Platelet Count 183 K/uL (130-400); RDW Coefficient of Variation 13.5 % (11.5-14.5); Red Blood Count 3.69 M/uL (4.20-5.40); White Blood Count 12.03 K/ul (4.8-10.8)
--- NOTE | 2023-10-12 08:01 | Obstetrical Progress Note ---
Date of Service October 12, 2023 Assessment & Plan (1) Normal course: PPD #1 pt doing well d/c honorio PM Subjective Ambulation: ambulating normally Voiding: no voiding problems Passing Gas:: Yes Diet Tolerance:: regular diet Lochia:: Small Feeding Type:: breast feeding Review of Systems All systems reviewed & are unremarkable except as noted in HPI & below Physical Exam Constitutional WD/WN, vitals as above well developed and well nourished Eyes PERRL, conjunctivae normal, anicteric sclerae Neck trachea midline, no thyromegaly Respiratory normal respiratory effort, lungs clear to auscultation Auscultation: no crackles, no rales and no wheezes Cardiovascular RRR, no murmur, no edema Gastrointestinal (Abdomen) normal bowel sounds, soft, nontender, no hepatosplenomegaly Uterus is below umbilicus Musculoskeletal no cyanosis or clubbing, extremities motor strength 5/5 Skin no rashes, warm and dry Neurologic patellar DTR's 2+ bilat, sensation intact Psychiatric A+Ox3, euthymic affect Genitourinary normal external appearance Results & Data Vital Signs (Past 12 Hours) Vital Signs Temp Pulse Resp BP Pulse Ox O2 Del Method 10/12/23 05:00 36.7 C 88 18 115/64 10/11/23 23:30 36.6 C 77 18 113/63 96 Room Air
[2023-10-12] MEDS ORDERED: bisacodyL 5 MG TABEC PO SCH (20:00)
== END 2023-10-12 17:00 | disposition home health service (06) | DRG 807 ==
LOC: OPB 20:42 → 4S1 20:45 → 4E1 10-11 09:30

== ENCOUNTER 2025-07-27 03:53 | Inpatient (IN) ==
[2025-07-27] MEDS ORDERED: LACTATED RINGER'S 1,000 ML IV PRN (04:41)
[2025-07-27 05:23] LABS: Hematocrit (blood only) 41.4 % (37.0-47.0); Hemoglobin 14.1 g/dL (12.0-16.0); Mean Corpuscular Hemoglobin 30.8 pg (25.0-34.0); Mean Corpuscular Volume 90.4 fL (80.0-100.0); Platelet Count 231 K/uL (130-400); RDW Standard Deviation 43.8 fL (36.4-46.3); Red Blood Count 4.58 M/uL (4.20-5.40); White Blood Count 7.43 K/ul (4.8-10.8)
--- NOTE | 2025-07-27 07:25 | History & Physical Report ---
Date of Service July 27, 2025 Assessment & Plan Admission and Anticipated Discharge Date Admission Date: July 27, 2025 History of Present Illness Chief Complaint: ruptured membranes Primary Care Provider: Giovanni Valdes MD 35 F P1001 at 40 weeks presents with SROM clear fluid and onset of contractions. GBS is negative.. Allergies Allergy/AdvReac Type Severity Reaction Status Date / Time No Known Allergies Allergy Unknown Verified 07/27/25 04:20 Home Medications Medication Instructions Recorded Confirmed Type vits,calcium 91-iron 28 1 pkg PO DAILY 10/10/23 07/27/25 History mg-folic 975 mcg-dha 200 mg oral pack ( + DHA) Patient History Surgical History S/P appendectomy Family History Father Diabetes Mother Glaucoma Mother Glaucoma Grandfather (Maternal) Hypertension Stroke Social History Smoking Status: Never smoker Hx Alcohol Use: No Hx Substance Use: No Preferred Language: Telugu Communication Ability: Effective Scale Mechanic Required: No Beliefs That Will Affect Care: None marital status: marital status details: Prashant (David) Current Living Situation: Spouse Current Living Situation Comment: house with and son current occupational status: employed current occupation: [employer] Other Information That Helps Us Care for You: No Feels Safe at Home: Yes Safety Concerns: Feels Safe At This Time Diet: regular Assistive Devices: Contacts OB History x1 PIE BAKER History neg Physical Exam Constitutional: WD/WN, vitals as above Eyes: PERRL, conjunctivae normal, anicteric sclerae Respiratory: normal respiratory effort Cardiovascular: Rate/Rhythm: regular rate and regular rhythm Gastrointestinal (Abdomen): Inspection/Auscultation: abdomen normal to inspection Musculoskeletal: Extremities: extremities normal to inspection Skin: no rashes, warm and dry Neurologic: patellar DTR's 2+ bilat, sensation intact Psychiatric: A+Ox3, euthymic affect Genitourinary: Manual OB Exam: + cervical dilation 7 cm, + cervical effacement 100%, + station -1 and + amniotic fluid clear OB Exam Monitor Tracing: + external FHT monitor used, + external uterine monitor used, + category I and + normal FHT variability Results & Data Vital Signs (Past 12 Hours) Vital Signs Temp Pulse Resp BP O2 Del Method 07/27/25 06:04 36.5 C 76 103/69 07/27/25 04:23 36.5 C 18 Room Air 07/27/25 04:22 18 07/27/25 04:22 36.5 C 81 18 113/70
[2025-07-27] MEDS: OXYTOCIN 30 UNITS/NSS 30 UNITS/500 ML BAG IV PRN (13:15)
[2025-07-27] MEDS: METHYLERGONOVINE MALEATE 0.2 MG/ML AMP ONE (13:25)
[2025-07-27] MEDS ORDERED: HYDROCORTISONE ACETATE 25 MG SUPP PR PRN (13:48)
[2025-07-27] MEDS ORDERED: ACETAMINOPHEN W/CODEINE #3 1 TAB PO PRN (13:48)
[2025-07-27] MEDS ORDERED: ACETAMINOPHEN 325 MG TAB PO PRN (13:48)
[2025-07-27] MEDS ORDERED: OXYTOCIN 30 UNITS/NSS 30 UNITS/500 ML BAG IV PRN (13:48)
[2025-07-27] MEDS: LIDOCAINE 1% LOCAL 20 ML VIAL INFIL PRN (13:50)
--- NOTE | 2025-07-27 13:54 | Delivery Summary ---
Vaginal Delivery Summary Date of Service July 27, 2025 Vaginal Delivery Summary Patient was followed in the office for care and delivery. Was admitted at 40 weeks gestation in spontaneous labor. Patient underwent an unstimulated unmedicated labor. Pushed out a live infant via direct occiput posterior over an intact perineum. Molding of the head was noted at the time of delivery. was suctioned through the mouth and the nose. Shoulders were delivered without difficulty. Cord was allowed to pulse for 1 full minute. Cord was then clamped cut by the father. IV Pitocin and IM Methergine the placenta was removed intact. Cord blood was taken. Inspection of the perineum revealed a third-degree laceration with tearing of the rectal sphincter. Repair was done anatomically. Vaginal mucosa was approximated out to beyond the hymenal ring. The rectal sphincter capsule was carefully repaired inserting the free end of the rectal sphincter muscle back into the capsule. In doing a donut shaped repair with interrupted sutures of 2-0 Vicryl. Following this the perineal body was repaired over the sphincter repair which bolstered the repair a deep suture of Vicryl was used approximate the bulbocavernosus muscle. The perineal body was also repaired with 2 deep sutures of 2-0 Vicryl. Good anatomical repair was noted at this time. A running subcuticular suture of 2-0 Vicryl was used to approximate the perineal skin edges. Sponges were removed from the vagina. Rectal exam was performed after this repair and Cytotec was inserted rectally no stitches were palpated through the rectal mucosa and the rectal sphincter had good tone. Quantitative blood loss was 410 mL. This repair was done under a bilateral pudendal block with approximately 10 cc of local injected into each sacrospinous notch. This was done by first palpating the position. Inserting the needle. Withdrawing the make sure it was not in any vessel. And then injecting 10 cc. We obtained a good result with this block. Patient tolerated delivery well left the delivery room in good condition.
[2025-07-27] MEDS: BENZOCAINE 20% SPRY 85 APPLN/85 GM CAN EXT PRN (15:03)
[2025-07-27] MEDS: METHYLERGONOVINE MALEATE 0.2 MG/ML AMP IM ONE (15:03)
[2025-07-27] MEDS: IBUPROFEN 600 MG TAB PO PRN (15:03)
[2025-07-27] MEDS: DOCUSATE SODIUM 100 MG CAP PO SCH (21:00)
[2025-07-28] MEDS: DIPHTHER/TETAN/PERTUS Vaccine (Tdap, Adol/Adult) 0.5mL IM ONE (01:16)
[2025-07-28 04:46] VITALS: O2SAT 97
[2025-07-28 07:08] LABS: Hematocrit (blood only) 35.9 % (37.0-47.0); Hemoglobin 12.4 g/dL (12.0-16.0); Mean Corpuscular Hemoglobin 31.2 pg (25.0-34.0); Mean Corpuscular Volume 90.4 fL (80.0-100.0); Platelet Count 203 K/uL (130-400); RDW Standard Deviation 44.4 fL (36.4-46.3); Red Blood Count 3.97 M/uL (4.20-5.40); White Blood Count 13.92 K/ul (4.8-10.8)
[2025-07-28] MEDS: PRENATAL VITAMIN 1 TAB PO SCH (07:16)
[2025-07-28 07:43] VITALS: TEMP 97.5
--- NOTE | 2025-07-28 10:15 | Obstetrical Progress Note ---
Date of Service July 28, 2025 Subjective Ambulation: ambulating normally Voiding: no voiding problems Passing Gas:: Yes Diet Tolerance:: regular diet Lochia:: Small Feeding Type:: breast feeding Current Pain Level(1-10): 0 doing well. plans for d/c today. Physical Exam Constitutional WD/WN, vitals as above Gastrointestinal (Abdomen) Inspection/Auscultation: abdomen normal to inspection abdomen soft and non-tender. fundus firmbelow U. Musculoskeletal Extremities: extremities normal to inspection Skin no rashes, warm and dry Neurologic patellar DTR's 2+ bilat, sensation intact Psychiatric A+Ox3, euthymic affect Results & Data Vital Signs (Past 12 Hours) Vital Signs Temp Pulse Resp BP Pulse Ox O2 Del Method 07/28/25 07:15 36.4 C L 76 16 88/59 L 97 Room Air 07/28/25 03:05 36.6 C 66 18 98/63 L 97 Room Air 07/27/25 23:10 37.1 C 75 18 96/57 L 96 Room Air Laboratory Results 07/27/25 07/28/25 05:09 06:40 WBC 7.43 13.92 H RBC 4.58 3.97 L Hgb 14.1 12.4 Hct 41.4 35.9 L MCV 90.4 90.4 MCH 30.8 31.2 MCHC 34.1 34.5 RDW Std Deviation 43.8 44.4 RDW Coeff of Francesco 13.5 13.5 Plt Count 231 203 MPV 9.3 L 9.5 Treponema pallidum Ab Negative
[2025-07-28 14:19] VITALS: BP 94/64; PULSE 80; RESP 18
== END 2025-07-28 15:45 | disposition home or self-care (01) | DRG 768 ==
LOC: OPB 03:53 → 4S1 03:56 → 4E2 16:22